=== PATIENT | female | born 1960 | race Caucasian/White ===

== ENCOUNTER 2020-03-01 14:17 | Observation (INO) | payer BC ==
[~2020-03-01] VITALS: Ht 165.1 cm; Wt 89.7 kg
[2020-03-01 14:51] LABS: BASO # 0.1 (0.0-0.2); BASO % 0.4 % (0.0-2.0); EOS # 0.2 (0.0-0.7); EOS % 1.3 % (0-4.0); GRAN # 8.3 (1.4-6.5); GRAN % 68.2 % (42.2-75.2); HEMATOCRIT 45.7 % (37.0-47.0); HEMOGLOBIN 15.5 g/dl (12.5-16.0); LYMPH # 2.8 (1.2-3.4); LYMPH % 22.9 % (20.0-51.0); MEAN CELL VOLUME 83 fl (80.0-100.0); MEAN CORPUSCULAR HEMOGLOBIN 28 pg (27.0-31.0); MEAN CORPUSCULAR HGB CONC 34 g/dl (33.0-37.0); MEAN PLATELET VOLUME 8.2 fl (7.4-10.4); MONO # 0.8 (0.1-0.6); MONO % 6.9 % (1.7-9.3); PLATELET COUNT 277 K/mm3 (130-400); RED BLOOD COUNT 5.48 M/mm3 (4.10-5.30); REDCELL DISTRIBUTION WIDTH-CV 14.4 % (11.5-14.5)
[2020-03-01 14:58] LABS: PROTHROMBIN TIME 11.5 SECONDS (9.7-12.8)
[2020-03-01 15:01] LABS: PARTIAL THROMBOPLASTIN TIME 52.7 SECONDS (26.0-37.0)
[2020-03-01 15:02] LABS: ALBUMIN 3.5 gm/dL (3.5-5.0); BILIRUBIN,TOTAL 0.4 mg/dL (0.0-1.0); CALCIUM 8.9 mg/dL (8.4-10.2); CREATININE, serum 0.62 (0.52-1.25); POTASSIUM 3.2 mmol/L (3.4-5.0); TOTAL PROTEIN 6.2 gm/dL (6.4-8.2)
[2020-03-01 15:13] LABS: TROPONIN-I 0.015 ng/mL (0.000-0.035)
[2020-03-01] MEDS ORDERED: AMBIEN 10MG10 MG PO (15:17)
[2020-03-01] MEDS ORDERED: PLAVIX 75MG TAB75 MG PO (15:17)
[2020-03-01] MEDS ORDERED: ASPIRIN 81M81 MG/TA2 PO (15:24)
[2020-03-01] MEDS ORDERED: PRINIVIL20 MG PO (15:25)
[2020-03-01] MEDS ORDERED: IMDUR 60MG60 MG/TAB PO (15:26)
[2020-03-01] MEDS ORDERED: PLETAL50 MG PO (15:27)
[2020-03-01] MEDS ORDERED: JARDIANCE25 (15:28)
[2020-03-01] MEDS ORDERED: PROZAC 20MG20 MG PO (15:28)
[2020-03-01] MEDS ORDERED: TOPROL XL 50MG50 MG PO (15:29)
[2020-03-01] MEDS ORDERED: GLUCOPHAGE500 MG/TAB PO (15:30)
[2020-03-01] MEDS ORDERED: REPATHA SU140 MG/1 M SQ (15:31)
[2020-03-01] MEDS ORDERED: TOUJEO300 U/ML SQ (15:42)
[2020-03-01 18:28] LABS: CHOLESTEROL RISK RATIO 1.8
[2020-03-01 18:32] VITALS: BP 176/88; PULSE 62; TEMP 97.6
[2020-03-01 19:30] VITALS: BP 145/65; PULSE 70; TEMP 97.6
[2020-03-01 20:09] VITALS: BP 154/59; PULSE 71; TEMP 97.6
[2020-03-01 23:53] VITALS: BP 162/86; PULSE 66; TEMP 98
[2020-03-02] VITALS (18 sets, daily range): BP systolic 139–189; BP diastolic 57–94; PULSE 61–71; TEMP 97.6–98.8
--- NOTE | 2020-03-02 00:49 | NUR ---
Patient pleasant, A/O x4. Patient denies chest pain, SOB, dyspnea, N/V, or headache. Patient independent in the room and denies any weakness or dizziness upon ambulation. Left forearm IV site has no s/s of complications. Scheduled meds given per APR. Call light within reach. Patient denies any needs at this time.
--- NOTE | 2020-03-02 06:13 | NUR ---
Patient sitting in the chair at 0600. Patient denies any chest pain or SOB. Patient independent in the room. Denies weakness or dizziness upon get up and ambulating in the room. Nitro patch removed at 0600. NPO status maintained from midnight. Informed patient regarding Echo procedure and patient verbalized understanding. Call light within reach. Patient denies any needs at this time.
[2020-03-02 07:15] LABS: ALBUMIN 3.4 gm/dL (3.5-5.0); BILIRUBIN,TOTAL 0.4 mg/dL (0.0-1.0); CALCIUM 8.6 mg/dL (8.4-10.2); CREATININE, serum 0.71 (0.52-1.25); POTASSIUM 3.6 mmol/L (3.4-5.0); TOTAL PROTEIN 5.9 gm/dL (6.4-8.2)
[2020-03-02 07:23] LABS: BASO # 0.1 (0.0-0.2); BASO % 0.7 % (0.0-2.0); EOS # 0.2 (0.0-0.7); EOS % 2.2 % (0-4.0); GRAN # 4.7 (1.4-6.5); GRAN % 51.1 % (42.2-75.2); HEMATOCRIT 44.6 % (37.0-47.0); HEMOGLOBIN 15.1 g/dl (12.5-16.0); LYMPH # 3.4 (1.2-3.4); LYMPH % 37.3 % (20.0-51.0); MEAN CELL VOLUME 83 fl (80.0-100.0); MEAN CORPUSCULAR HEMOGLOBIN 28 pg (27.0-31.0); MEAN CORPUSCULAR HGB CONC 34 g/dl (33.0-37.0); MEAN PLATELET VOLUME 8.6 fl (7.4-10.4); MONO # 0.8 (0.1-0.6); MONO % 8.3 % (1.7-9.3); PLATELET COUNT 281 K/mm3 (130-400); RED BLOOD COUNT 5.35 M/mm3 (4.10-5.30); REDCELL DISTRIBUTION WIDTH-CV 14.6 % (11.5-14.5)
[2020-03-02 07:26] LABS: TROPONIN-I 0.018 ng/mL (0.000-0.035)
--- NOTE | 2020-03-02 09:00 | NUR ---
New order received from Dr. Reno for left heart catheterization. reported that Dr. Mendoza might be able to perform the procedure around noon but to call him first as his clinic was very busy. Dr. Mendoza vehicle monitor technician today for the cardiac laborer car barn. Attempted to call MD on his cell phone with hospital phone and it went straight to voicemail at 0905. I then texted Dr. Mendoza to see what time he would like us to have his patient ready. I also called Huong the pediatric clinical nurse specialist for heart and vascular clinics and notified her that I was not able to reach Dr. Mendoza by cell phone or by text and Huong stated she would follow up with Dr. Mendoza to contact me back. I received a text message from Dr. Mendoza at 1120 regarding the procedure.
--- NOTE | 2020-03-02 09:01 | NUR ---
RAMON met with the patient to discuss discharge plan. The patient lives in [place] with her , Fredy (ph#[phone]). She reports independence with ADLs and does not have any DME. The patient's PCP is Dr. Vicky Nunez at the [facility] in [place] and she receives her medications from [facility]. She reports no difficulties obtaining her meds. The patient does not have a DPOA-HC, but she was interested in a form. RAMON provided. The patient plans to return home with her upon discharge. RAMON contacted and reviewed the d/c plan with the patient's , Fredy. Fredy had no concerns about the patient returning home upon discharge. No additional needs at this time.
--- NOTE | 2020-03-02 10:29 | NUR ---
Pt assessment completed, pt laying in bed, denies SOB, N/V/D, chest pain, vision changes. Pt states she has some numbness to toes but that has been baseline for last year. Pulses strong bilaterally, HRRR, LS cta. Pt has LFA INT IV that flushes well, no issues. Pt BP this morning 172/92 @0800, rechecked 189/73 @ 0930. Lisinopril and toprol administered per apr, will recheck BP. All other VSS. Pt denies any concerns. Pt on room air, breathing is even and unlabored. No further needs at this time, pt to have Heart Cath this afternoon.
--- NOTE | 2020-03-02 17:54 | NUR ---
Pt taken down for heart cath procedure at this time w/ VERO Daniel. BP and BS will be checked at procedure.
--- NOTE | 2020-03-02 18:04 | NUR ---
SEE MERGE DOCUMENTATION FOR MEDICATION ADMINISTRATION TIMES AND INTRA/POST PROCEDURE SEDATION ASSESSMENTS.
--- NOTE | 2020-03-02 19:01 | NUR ---
Pt post-stent deployment in collaborating supervising physician. Pt has been on ASA and Plavix emt intermediate. Pt received ASA 81mg and Plavix 75mg PO at 1400 today. This information relayed to Dr Mendoza. Per , no extra ASA or Plavix required. Angiomax gtt to be DC'd on departure to Medical Floor from Geothermal Powerplant Supervisor. Orders read back and verified with .
[2020-03-03] VITALS (7 sets, daily range): BP systolic 125–150; BP diastolic 53–72; PULSE 67–77; TEMP 97.8–98.2
--- NOTE | 2020-03-03 01:20 | NUR ---
Patient came back to the room from Heart laboratory sampler at 19:25 pm. Patient alert and oriented. Right femeral puncture site covered wit dry gauze and C/D/I. Puncture site skin soft and no hematoma. Peripheral pulses strong. Patient denies any numbness or tingling. No N/V, no c/o pain or discomfort. VS stable. Patient laying supine in bed. Offered dinner at this time. Call light within reach. Will continue to monitor.
--- NOTE | 2020-03-03 01:36 | NUR ---
Patient c/o lower back pain 09/20. PRN Morphine given per APR. K+ level 3.6. Replaced potassium per protocol. Right femeral puncture site remains C/D/I. Skin soft and no hematoma noted. No numbness or tingling noted. VS stable. Will continue to monitor.
--- NOTE | 2020-03-03 05:32 | NUR ---
Heart cath puncture site remains C/D/I throughout the night. Skin soft and no hematoma around puncture site. No numbness or tingling noted. VS WNL this morning. No acute distress noted.
[2020-03-03 07:24] LABS: BASO % 0.5 % (0.0-2.0); EOS # 0.1 (0.0-0.7); EOS % 0.9 % (0-4.0); GRAN # 4.5 (1.4-6.5); GRAN % 52.9 % (42.2-75.2); HEMATOCRIT 40.6 % (37.0-47.0); HEMOGLOBIN 13.7 g/dl (12.5-16.0); LYMPH # 3.1 (1.2-3.4); LYMPH % 36.7 % (20.0-51.0); MEAN CELL VOLUME 84 fl (80.0-100.0); MEAN CORPUSCULAR HEMOGLOBIN 28 pg (27.0-31.0); MEAN CORPUSCULAR HGB CONC 34 g/dl (33.0-37.0); MEAN PLATELET VOLUME 8.8 fl (7.4-10.4); MONO # 0.8 (0.1-0.6); MONO % 8.8 % (1.7-9.3); PLATELET COUNT 240 K/mm3 (130-400); RED BLOOD COUNT 4.85 M/mm3 (4.10-5.30)
[2020-03-03 08:07] LABS: CALCIUM 8.6 mg/dL (8.4-10.2); CREATININE, serum 0.84 (0.52-1.25); POTASSIUM 3.9 mmol/L (3.4-5.0)
--- NOTE | 2020-03-03 09:52 | NUR ---
Pt assessment completed and charted, medications administered per apr. Pt sitting on bench at bedside, denies any pain, dizziness, n/v/d, chest pain, SOB. Pt on room air, breathing is even and unlabored. Pt has LFA INT IV that flushes well, no issues. Pt has Rt groin site from heart cath on 03/02/20, gauze and tegaderm, CDI, soft to touch, no hematoma noted. LS cta, HRRR. BP and BS improved from yesterday. pt states she had back pain yesterday that has since improved. NO further concerns expressed at this time. Call light within reach.
[2020-03-03] MEDS ORDERED: IMDUR 60MG60 MG/TAB PO (10:42)
[2020-03-03] MEDS ORDERED: NITRO-DUR0.4 MG/PAT TD (10:43)
[2020-03-03] MEDS ORDERED: COREG12.5 MG PO (10:44)
[2020-03-03] MEDS ORDERED: NITROSTAT0.4 MG/TAB SL (10:45)
--- NOTE | 2020-03-03 11:18 | NUR ---
The clinical team notified RAMON that the patient is interested in getting a provider is [place]. RAMON met with the patient and provided her with a list of the different providers in [place]. The patient states that she will look over the patient.
--- NOTE | 2020-03-03 12:31 | NUR ---
Pt discharge instructions discussed and reviewed w/ patient who verbalized understanding, all questions answered. No further needs expressed. LFA INT IV dc'd w/ cath tip intact and no issues noted. Pt escorted out via WC w/ staff, arrive in private car to take pt home.
--- NOTE | 2020-03-03 12:47 | NUR ---
First visit from the arch support technician. No needs right now.
== END 2020-03-03 12:32 | disposition home or self-care (01) ==
LOC: COL.ER 14:17 → MEDICAL 15:46
PROVIDERS: Family Medicine; Internal Medicine Interventional Cardiology; Student in an Organized Health Care Education/Training Program; ADMIT Student in an Organized Health Care Education/Training Program
DX: I25.110 Atherosclerotic heart disease of native coronary artery with unstable angina pectoris (principal); I11.0 Hypertensive heart disease with heart failure; I50.32 Chronic diastolic (congestive) heart failure; I34.0 Nonrheumatic mitral (valve) insufficiency; E11.9 Type 2 diabetes mellitus without complications; G50.0 Trigeminal neuralgia; E87.6 Hypokalemia; Z20.822 Contact with and (suspected) exposure to COVID-19; G47.00 Insomnia, unspecified; I73.9 Peripheral vascular disease, unspecified; F32.9 Major depressive disorder, single episode, unspecified; Z95.1 Presence of aortocoronary bypass graft; Z95.828 Presence of other vascular implants and grafts; Z79.02 Long term (current) use of antithrombotics/antiplatelets; Z79.82 Long term (current) use of aspirin; Z23 Encounter for immunization; Z79.899 Other long term (current) drug therapy; Z79.4 Long term (current) use of insulin
CPT/HCPCS: C9600; G0008; G0378; J0360; J0583; J1644; J1650; J2250; J2270; J3010; Q9967

== ENCOUNTER → 2020-08-02 | Outpatient (CLI) | payer BC ==
[~2020-08-02] MED LIST: AMBIEN 10MG10 MG PO; ASPIRIN 81M81 MG/TA2 PO; COREG12.5 MG PO; GLUCOPHAGE500 MG/TAB PO; IMDUR 60MG60 MG/TAB PO; JARDIANCE25; NITRO-DUR0.4 MG/PAT TD; NITROSTAT0.4 MG/TAB SL; PLAVIX 75MG TAB75 MG PO; PLETAL50 MG PO; PRINIVIL20 MG PO; PROZAC 20MG20 MG PO; REPATHA SU140 MG/1 M SQ; TOPROL XL 50MG50 MG PO; TOUJEO300 U/ML SQ
== END ==
LOC: ZCOL.LAB 08:58
DX: Z01.818 Encounter for other preprocedural examination (principal); Z20.822 Contact with and (suspected) exposure to COVID-19

== ENCOUNTER 2021-02-17 18:27 | Inpatient (IN) | payer BC ==
[~2021-02-17] VITALS: Ht 165.1 cm; Wt 83.2 kg
[2021-02-17 19:35] LABS: BASO % 0.3 % (0.0-2.0); GRAN # 4.8 K/mm3 (1.4-6.5); GRAN % 70.2 % (42.2-75.2); HEMATOCRIT 39.9 % (37.0-47.0); HEMOGLOBIN 13.5 g/dl (12.5-16.0); LYMPH # 1.6 K/mm3 (1.2-3.4); LYMPH % 23.7 % (20.0-51.0); MEAN CELL VOLUME 81 fl (80.0-100.0); MEAN CORPUSCULAR HEMOGLOBIN 27 pg (27-31); MEAN CORPUSCULAR HGB CONC 34 g/dl (33.0-37.0); MEAN PLATELET VOLUME 9.1 fl (7.4-10.4); MONO # 0.4 K/mm3 (0.1-0.6); MONO % 5.4 % (1.7-9.3); PLATELET COUNT 189 K/mm3 (130-400); RED BLOOD COUNT 4.92 M/mm3 (4.10-5.30); REDCELL DISTRIBUTION WIDTH-CV 14.4 % (11.5-14.5)
[2021-02-17 19:50] LABS: ALBUMIN 2.6 gm/dL (3.4-4.8); BILIRUBIN,TOTAL 0.5 mg/dL (0.2-1.2); CALCIUM 7.9 mg/dL (8.4-10.2); CREATININE, serum 0.66 mg/dL (0.57-1.11); POTASSIUM 3.1 mmol/L (3.5-4.5); TOTAL PROTEIN 6.1 gm/dL (6.2-8.1)
[2021-02-17 19:57] LABS: TROPONIN-I 0.138 ng/mL (0.00-0.033)
[2021-02-17] MEDS ORDERED: IMDUR 60MG60 MG/TAB PO (21:19)
[2021-02-17] MEDS ORDERED: NORVASC 10MG10 MG PO (21:20)
[2021-02-17] MEDS ORDERED: LIDODERM 5% PATC1 EA TP (21:22)
[2021-02-17] MEDS ORDERED: OZEMPIC0.25 MG/0. SQ (21:24)
[2021-02-17] MEDS ORDERED: REPATHA SU140 MG/1 M SQ (21:24)
[2021-02-17] MEDS ORDERED: ZOLOFT 25MG25 MG PO (21:25)
--- NOTE | 2021-02-17 22:50 | NUR ---
PT admitted to room 352 from ED per WC on 6L O2 per NC, increased to 10L per RT after transferred to bed. pt alert and oriented, INT to LFA patent/secure. BGM ordered ACHS, up to restroom with hand held assistance. pt reports not eating dinner, sandwich box provided, orders reviewed and implemented.
[2021-02-17 22:58] VITALS: BP 194/89; PULSE 89; TEMP 98.2
[2021-02-18 03:59] VITALS: BP 167/66; PULSE 70; TEMP 98.4
[2021-02-18 05:45] LABS: GRAN # 4.2 K/mm3 (1.4-6.5); GRAN % 77.9 % (42.2-75.2); HEMATOCRIT 38.1 % (37.0-47.0); LYMPH # 0.9 K/mm3 (1.2-3.4); LYMPH % 17.2 % (20.0-51.0); MEAN CELL VOLUME 82 fl (80.0-100.0); MEAN CORPUSCULAR HEMOGLOBIN 28 pg (27-31); MEAN CORPUSCULAR HGB CONC 34 g/dl (33.0-37.0); MEAN PLATELET VOLUME 9.4 fl (7.4-10.4); MONO # 0.2 K/mm3 (0.1-0.6); MONO % 4.5 % (1.7-9.3); PLATELET COUNT 167 K/mm3 (130-400); RED BLOOD COUNT 4.65 M/mm3 (4.10-5.30); REDCELL DISTRIBUTION WIDTH-CV 14.2 % (11.5-14.5)
[2021-02-18 05:56] LABS: CALCIUM 7.9 mg/dL (8.4-10.2); CREATININE, serum 0.66 mg/dL (0.57-1.11); POTASSIUM 3.4 mmol/L (3.5-4.5)
[2021-02-18 06:09] LABS: TROPONIN-I 6 HR POST INITIAL 0.117 ng/mL (0.00-0.033)
--- NOTE | 2021-02-18 06:27 | NUR ---
pt remains on 10L O2 per NC sats low 90s, up to restroom with handheld assistance d/t weakness. bgm 154 this am.
[2021-02-18 07:38] VITALS: BP 145/56; PULSE 64; TEMP 98.5
--- NOTE | 2021-02-18 11:50 | NUR ---
Scheduled medications given. Shift assessment performed. Patient currently requiring 12L of O2 via nasal cannula. Denies any pain, discomfort, SOA, or further needs at this time. VSS. Patient A&O. Call light in reach. Fall percautions in place.
[2021-02-18 11:52] VITALS: BP 135/52; PULSE 64; TEMP 97.6
--- NOTE | 2021-02-18 13:20 | NUR ---
Household Refrigeration Mechanic called patient and prayed with them over the phone.
[2021-02-18 15:22] VITALS: BP 125/52; PULSE 66; TEMP 97.7
--- NOTE | 2021-02-18 19:16 | NUR ---
Patient has had an ok day. Denies any pain, discomfort, SOA, or further needs at this time. VSS. Patient A&O. Currenlty requiring 12L of O2 via nasal cannula. Call light in reach.
[2021-02-18 20:06] VITALS: BP 129/59; PULSE 89; TEMP 97.9
[2021-02-18 23:20] VITALS: BP 130/60; PULSE 69; TEMP 98
[2021-02-19] VITALS (210 sets, daily range): BP systolic 130–183; BP diastolic 54–74; PULSE 52–85; TEMP 98.2–99.5; O2SAT 95–100
--- NOTE | 2021-02-19 04:20 | NUR ---
PT'S FASTING BGM 36, ORANGE JUICE AND CRACKERS GIVEN, RECHECK 71, LORI FINK NOTIFIED, NO NEW ORDERS.
--- NOTE | 2021-02-19 08:09 | NUR ---
PT 84% ON 12 LPM HFNC INCREASED TO 15 LPM 84% PLACED ON AIRVO 60L 86% SPO2 88% RN NOTIFIED
[2021-02-19 08:41] LABS: ARTERIAL BLD GAS TCO2 CT 25.8; ARTERIAL BLOOD GAS BASE EXCESS 2.9 (-2-2); ARTERIAL BLOOD GAS HCO3 24.9 meq/L (22-26); ARTERIAL BLOOD GAS PCO2 30.8 mmHg (35-45); ARTERIAL BLOOD GAS pH 7.53 (7.35-7.45)
[2021-02-19 08:42] LABS: ARTERIAL BLOOD GAS PO2 46.5 mmHg (80-100)
[2021-02-19 09:52] LABS: BASO % 0.2 % (0.0-2.0); GRAN # 9.6 K/mm3 (1.4-6.5); GRAN % 81.8 % (42.2-75.2); HEMATOCRIT 42.3 % (37.0-47.0); HEMOGLOBIN 14.1 g/dl (12.5-16.0); LYMPH # 1.5 K/mm3 (1.2-3.4); MEAN CELL VOLUME 82 fl (80.0-100.0); MEAN CORPUSCULAR HEMOGLOBIN 27 pg (27-31); MEAN CORPUSCULAR HGB CONC 33 g/dl (33.0-37.0); MEAN PLATELET VOLUME 9.2 fl (7.4-10.4); MONO # 0.5 K/mm3 (0.1-0.6); MONO % 4.6 % (1.7-9.3); PLATELET COUNT 266 K/mm3 (130-400); RED BLOOD COUNT 5.14 M/mm3 (4.10-5.30); REDCELL DISTRIBUTION WIDTH-CV 14.2 % (11.5-14.5)
[2021-02-19 10:09] LABS: CALCIUM 8.1 mg/dL (8.4-10.2); CREATININE, serum 0.57 mg/dL (0.57-1.11); POTASSIUM 3.2 mmol/L (3.5-4.5)
--- NOTE | 2021-02-19 10:29 | NUR ---
Scheduled medications given. Shift assessment performed. Patient A&O. RT informed this RN that patient's O2 requirements have increased substantially. Patient is currently requiring Bipap. Setting are 18/10 at 100%. Blood glucose checked and it read 47. Hypoglycemic protocol in place. Poell aware. Call light in reach. Fall percaution in place.
--- NOTE | 2021-02-19 11:05 | NUR ---
Sw tried to via call pt due to covid + to complete intake and was not successful at 11:05 am.
--- NOTE | 2021-02-19 12:30 | NUR ---
Pt arrived from Medical floor, prior to arrival CT chest performed. Pt awake, alert, oriented, tolerating BiPAP well with no distress. Pt states she feels better wearing BiPAP with the amount of air it provides with each breath. Pt able to speak in complete sentences. BiPAP education provided - pt has no difficulty comprehending. Extensive talk/education provided regarding current BiPAP maximum settings - pt informed that intubation with mechanical ventilation would be the next step if BiPAP is either not tolerated or does not provide enough ventilatory support to maintain adequate oxygenation. Pt states understanding and wishes to "do what ever it takes". Pt having urinary retention and states she is unable to void using a bed reyes Purvis MD notified - order for Arnold provided. Tepid water requested and provided with assistance - no difficulty swallowing Denies any further needs - call light in reach
--- NOTE | 2021-02-19 13:06 | NUR ---
Patient transferred to ICU bed 2. Report given to VREO Meza. CT scan completed. BS stable.
[2021-02-19 14:05] LABS: ARTERIAL BLD GAS O2 SATURATION 97.1 % (92-100); ARTERIAL BLD GAS TCO2 CT 23.8; ARTERIAL BLOOD GAS BASE EXCESS 0.1 (-2-2); ARTERIAL BLOOD GAS HCO3 22.8 meq/L (22-26); ARTERIAL BLOOD GAS PCO2 31.3 mmHg (35-45); ARTERIAL BLOOD GAS PO2 90.2 mmHg (80-100); ARTERIAL BLOOD GAS pH 7.48 (7.35-7.45)
--- NOTE | 2021-02-19 17:41 | NUR ---
Pt continues to tolerate BiPAP well. Pt watching television and using cell phone.
[2021-02-20] VITALS: BP 131/65; PULSE 57; TEMP 99.1
[2021-02-20 04:00] VITALS: BP 148/79; PULSE 56; TEMP 98.7
[2021-02-20 04:54] LABS: ARTERIAL BLD GAS O2 SATURATION 97.3 % (92-100); ARTERIAL BLD GAS TCO2 CT 23.3; ARTERIAL BLOOD GAS BASE EXCESS -1.5 (-2-2); ARTERIAL BLOOD GAS HCO3 22.3 meq/L (22-26); ARTERIAL BLOOD GAS PCO2 34.4 mmHg (35-45); ARTERIAL BLOOD GAS PO2 100.7 mmHg (80-100); ARTERIAL BLOOD GAS pH 7.43 (7.35-7.45)
[2021-02-20 05:26] LABS: BASO % 0.2 % (0.0-2.0); GRAN # 3.7 K/mm3 (1.4-6.5); GRAN % 65.9 % (42.2-75.2); LYMPH # 1.5 K/mm3 (1.2-3.4); LYMPH % 25.6 % (20.0-51.0); MEAN CELL VOLUME 82 fl (80.0-100.0); MEAN CORPUSCULAR HGB CONC 34 g/dl (33.0-37.0); MONO # 0.4 K/mm3 (0.1-0.6); MONO % 7.4 % (1.7-9.3); PLATELET COUNT 231 K/mm3 (130-400); RED BLOOD COUNT 4.18 M/mm3 (4.10-5.30); REDCELL DISTRIBUTION WIDTH-CV 14.5 % (11.5-14.5)
[2021-02-20 05:35] LABS: HEMATOCRIT 34.3 % (37.0-47.0); HEMOGLOBIN 11.6 g/dl (12.5-16.0); MEAN CORPUSCULAR HEMOGLOBIN 28 pg (27-31)
[2021-02-20 05:49] LABS: CALCIUM 7.8 mg/dL (8.4-10.2); CREATININE, serum 0.68 mg/dL (0.57-1.11); POTASSIUM 3.7 mmol/L (3.5-4.5)
--- NOTE | 2021-02-20 07:00 | NUR ---
Assumed PT. All lines,BIPAP setting check. VSS.
[2021-02-20 08:00] VITALS: BP 147/76; PULSE 50; TEMP 98.3
--- NOTE | 2021-02-20 10:19 | NUR ---
Electronic Repair Troubleshooter contacted patient's , Fredy to complete initial intake as patient is in COVID isolation and on bipap. Patient lives with Fredy in [facility] and Fredy advised he cannot remember who patient's primary care physician is, but he thinks she sees someone in [place]. Patient obtains medications from [facility] in [place] and also recently started using a walker. Patient is normally independent with ADLS and Fredy advised the plan will be to return home if able. Patient is to Fredy and also has two adult sons, Darron ([place]) and Gordo ([facility]). Fredy advised patient also has two step daughters. Fredy does not believe patient has any Advance Directives. SW will continue to monitor for discharge needs.
--- NOTE | 2021-02-20 10:35 | NUR ---
PT placed on AIRVO 60L 90% . Will closely monitor for desaturation. .
[2021-02-20 12:00] VITALS: BP 147/66; PULSE 63; TEMP 98.8
--- NOTE | 2021-02-20 13:00 | NUR ---
PT continues to tolerate airvo well. Ate some lunch without issue.
[2021-02-20 16:00] VITALS: BP 149/71; PULSE 68; TEMP 97.9
[2021-02-20 20:00] VITALS: BP 145/66; PULSE 55; TEMP 98
[2021-02-21] VITALS (560 sets, daily range): BP systolic 150–174; BP diastolic 68–77; PULSE 52–67; TEMP 98–98.3; O2SAT 73–100
[2021-02-21 04:17] LABS: ARTERIAL BLD GAS O2 SATURATION 98.7 % (92-100); ARTERIAL BLD GAS TCO2 CT 23.2; ARTERIAL BLOOD GAS BASE EXCESS -1.9 (-2-2); ARTERIAL BLOOD GAS HCO3 22.1 meq/L (22-26); ARTERIAL BLOOD GAS PCO2 35.4 mmHg (35-45); ARTERIAL BLOOD GAS pH 7.41 (7.35-7.45)
[2021-02-21 04:22] LABS: ARTERIAL BLOOD GAS PO2 142.9 mmHg (80-100)
[2021-02-21 05:38] LABS: BASO % 0.2 % (0.0-2.0); GRAN # 3.8 K/mm3 (1.4-6.5); GRAN % 65.2 % (42.2-75.2); HEMOGLOBIN 11.5 g/dl (12.5-16.0); LYMPH # 1.5 K/mm3 (1.2-3.4); LYMPH % 25.8 % (20.0-51.0); MEAN CELL VOLUME 83 fl (80.0-100.0); MEAN CORPUSCULAR HEMOGLOBIN 28 pg (27-31); MEAN CORPUSCULAR HGB CONC 33 g/dl (33.0-37.0); MEAN PLATELET VOLUME 8.9 fl (7.4-10.4); MONO # 0.5 K/mm3 (0.1-0.6); MONO % 7.9 % (1.7-9.3); PLATELET COUNT 259 K/mm3 (130-400); RED BLOOD COUNT 4.17 M/mm3 (4.10-5.30); REDCELL DISTRIBUTION WIDTH-CV 14.4 % (11.5-14.5)
[2021-02-21 05:42] LABS: HEMATOCRIT 34.5 % (37.0-47.0)
[2021-02-21 05:48] LABS: CALCIUM 7.9 mg/dL (8.4-10.2); CREATININE, serum 0.71 mg/dL (0.57-1.11); POTASSIUM 3.9 mmol/L (3.5-4.5)
--- NOTE | 2021-02-21 22:03 | NUR ---
PT PLACED ON BIPAP AT THIS TIME, READY FOR SLEEP. WILL CONTINUE TO MONITOR.
[2021-02-22] VITALS (54 sets, daily range): BP systolic 156–171; BP diastolic 52–72; PULSE 55–63; TEMP 97.6–98.5; O2SAT 93–100
--- NOTE | 2021-02-22 01:41 | NUR ---
REPORT CALLED TO MEDICAL FLOOR FOR PT TRANSFER TO ROOM 309. WILL TRANSPORT WITH BIPAP AND TELEMTRY BOX.
--- NOTE | 2021-02-22 02:30 | NUR ---
PT TRANSPORTED TO MEDICAL FLOOR, ROOM 309 WITH RT ASSISTANCE WITH BIPAP. MET TECH IN ROOM, RN AWARE. RELINQUISHED CARE AT THIS TIME.
--- NOTE | 2021-02-22 03:58 | NUR ---
PT ARRIVES TO MEDICAL FLOOR AT APPROXIMATELY 0215 VIA BED BY ICU STAFF AND RT, PT ON BIPAP / 60% PERCENT FI02 SATURATING 100 PERCENT. ASSESMENT COMPLETE. MED REC COMPLETE. PICC IN WILFRED MEASUREMENTS WNL, WALTER C&D, ORDERS RECEIVED. POC DISCUSSED. PT VERBALIZES UNDERSTANDING. PT ORIENTED TO MEDICAL FLOOR AND HOSPITAL POLICY. ALL QUESTIONS/CONCERNS ANWERED. PT VERY PLEASANT AND COOPERATIVE AND EXPRESSES NO ADDITIONAL NEEDS AT THIS TIME. CALL LIGHT WITHIN REACH.
--- NOTE | 2021-02-22 05:47 | NUR ---
NO CLINICAL CHANGES OVER NIGHT. INSULIN ADMINSITERED ORDERED. SYSTOLIC ELEVATED. BIPAP REMAINS ON WITH AFOREMENTIONED SETTINGS, 02 WEANING GOALS DISCUSSED WITH PT. PT VERBALIZES UNDERSANDING. ALL NEEDS MET THIS SHIFT. CALL LIGHT WITHIN REACH.
[2021-02-22 09:44] LABS: BASO % 0.1 % (0.0-2.0); EOS % 0.5 % (0.0-4.0); GRAN # 4.8 K/mm3 (1.4-6.5); GRAN % 62.1 % (42.2-75.2); HEMATOCRIT 39.9 % (37.0-47.0); HEMOGLOBIN 13.1 g/dl (12.5-16.0); LYMPH # 2.3 K/mm3 (1.2-3.4); LYMPH % 29.7 % (20.0-51.0); MEAN CELL VOLUME 83 fl (80.0-100.0); MEAN CORPUSCULAR HEMOGLOBIN 27 pg (27-31); MEAN CORPUSCULAR HGB CONC 33 g/dl (33.0-37.0); MEAN PLATELET VOLUME 8.6 fl (7.4-10.4); MONO # 0.5 K/mm3 (0.1-0.6); MONO % 6.6 % (1.7-9.3); PLATELET COUNT 341 K/mm3 (130-400); RED BLOOD COUNT 4.79 M/mm3 (4.10-5.30)
[2021-02-22 10:19] LABS: CALCIUM 8.1 mg/dL (8.4-10.2); CREATININE, serum 0.65 mg/dL (0.57-1.11); POTASSIUM 3.8 mmol/L (3.5-4.5)
--- NOTE | 2021-02-22 11:30 | NUR ---
eport received from VERO Meza. Pt in bed resting, removed awan catheter per orders, pt tolerated well, sitting at side of bed eating lunch, doing well, denies pain or other needs, will continue to monitor.
--- NOTE | 2021-02-22 17:57 | NUR ---
Pt doing well, up sitting at bedside with AIRVO at 45L/60% and tolerating well. Arnold out and pt able to void, denies needs, will give report to nightshift nurse who will resume care.
[2021-02-23 04:32] VITALS: BP 169/73; PULSE 61; TEMP 97.7
[2021-02-23 05:15] LABS: ARTERIAL BLD GAS O2 SATURATION 94.1 % (92-100); ARTERIAL BLD GAS TCO2 CT 21.8; ARTERIAL BLOOD GAS BASE EXCESS -1.9 (-2-2); ARTERIAL BLOOD GAS HCO3 20.9 meq/L (22-26); ARTERIAL BLOOD GAS PCO2 30.2 mmHg (35-45); ARTERIAL BLOOD GAS pH 7.46 (7.35-7.45)
--- NOTE | 2021-02-23 06:51 | NUR ---
PT 02 NEEDS UNCHANGED. PT TOLERATING 02 WEAN, PT PLEASANT, COOPERATIVE AND COMPLIANT WITH RECS. THIS NURSE WILL CONTACT SON TO UPDATE.
[2021-02-23 08:17] VITALS: BP 167/51; PULSE 58; TEMP 97.5
[2021-02-23 10:03] LABS: BASO % 0.3 % (0.0-2.0); EOS # 0.1 K/mm3 (0.0-0.7); GRAN # 5.5 K/mm3 (1.4-6.5); HEMATOCRIT 41.6 % (37.0-47.0); HEMOGLOBIN 13.8 g/dl (12.5-16.0); LYMPH # 2.8 K/mm3 (1.2-3.4); LYMPH % 30.9 % (20.0-51.0); MEAN CELL VOLUME 82 fl (80.0-100.0); MEAN CORPUSCULAR HEMOGLOBIN 27 pg (27-31); MEAN CORPUSCULAR HGB CONC 33 g/dl (33.0-37.0); MEAN PLATELET VOLUME 8.7 fl (7.4-10.4); MONO # 0.6 K/mm3 (0.1-0.6); MONO % 6.5 % (1.7-9.3); PLATELET COUNT 338 K/mm3 (130-400); RED BLOOD COUNT 5.05 M/mm3 (4.10-5.30); REDCELL DISTRIBUTION WIDTH-CV 13.9 % (11.5-14.5)
[2021-02-23 10:23] LABS: CALCIUM 8.4 mg/dL (8.4-10.2); CREATININE, serum 0.68 mg/dL (0.57-1.11); POTASSIUM 4.3 mmol/L (3.5-4.5)
[2021-02-23 12:15] VITALS: BP 125/54; PULSE 59; TEMP 97.4
--- NOTE | 2021-02-23 12:51 | NUR ---
The patient is down to 6 liters of oxygen. SW to continue to monitor.
[2021-02-23 16:59] VITALS: BP 131/53; PULSE 59; TEMP 97.6
[2021-02-23 19:46] VITALS: BP 133/50; PULSE 56; TEMP 97.7
[2021-02-23 20:56] LABS: CREATININE, serum 0.79 mg/dL (0.57-1.11); POTASSIUM 4.3 mmol/L (3.5-4.5)
--- NOTE | 2021-02-23 23:59 | NUR ---
PT IS PLEASANT, ALERT AND ORIENTATED. BGS WAS NOTED AT 430 VIA ACCUCHECK. BMP ORDERED, BGS CAME BACK AT 511. NINA FLORESISON ORDERED 14 UNITS NOVOLOG PER SLIDING SCHEDULE, WHEN BMP CAME BACK ORDERED 10 UNITS IV. PT DENIES ANY PAIN OR SIGNS OF HYPERGLYCEMIA. PT TOOK ALL MEDICATIONS DENIES PAIN. NS RUNNING AT 100 ML/HR. AT 2315, BGS RECHECKED, WAS AT 208. BOSTON NOTIFIED. WILL RECHECK BGS AT 0115.
[2021-02-24] VITALS (7 sets, daily range): BP systolic 121–179; BP diastolic 52–65; PULSE 53–64; TEMP 97.4–97.9
--- NOTE | 2021-02-24 05:51 | NUR ---
PT HAD AN RELATIVE UNEVENTFUL NIGHT. PT HAD HIGH BLOOD GLUCOSE EARLY IN EVENING, RETURNED TO 170 BY 0100. PT HAD NS RUNNING AT 100 ML/HR. D/C AROUND 0400 DUE TO HIGHER BP, 0900 DOSE OF APRESOLINE GIVEN AT THAT TIME PER DISPATCHER CLERK BOSTON ORDERS. ALL MEDICATIONS GIVEN, CALL LIGHT IN REACH.
[2021-02-24 06:09] LABS: HEMATOCRIT 38.2 % (37.0-47.0); HEMOGLOBIN 12.6 g/dl (12.5-16.0); MEAN CELL VOLUME 83 fl (80.0-100.0); MEAN CORPUSCULAR HEMOGLOBIN 27 pg (27-31); MEAN CORPUSCULAR HGB CONC 33 g/dl (33.0-37.0); MEAN PLATELET VOLUME 8.9 fl (7.4-10.4); PLATELET COUNT 344 K/mm3 (130-400); RED BLOOD COUNT 4.63 M/mm3 (4.10-5.30); REDCELL DISTRIBUTION WIDTH-CV 13.9 % (11.5-14.5)
[2021-02-24 06:20] LABS: CALCIUM 7.9 mg/dL (8.4-10.2); CREATININE, serum 0.58 mg/dL (0.57-1.11); POTASSIUM 3.7 mmol/L (3.5-4.5)
[2021-02-24 07:37] LABS: BAND 2 % (0-10); EOSINOPHIL 2 % (0-4); LYMPHOCYTE 16 % (20.0-51.0); NEUTROPHILS 72 % (42.0-75.2)
[2021-02-24 07:38] LABS: OVALOCYTES 1+; PLATELET ESTIMATE NORMAL (NORMAL)
[2021-02-24 07:39] LABS: MICROCYTOSIS 1+
--- NOTE | 2021-02-24 10:15 | NUR ---
PT ASSESSED. NO COMPALINTS OF PAIN OR DYSPNEA. NO SIGNS OR SYMPTOMS OF DISTRESS. CALL LIGHT WITHIN REACH
--- NOTE | 2021-02-24 16:08 | NUR ---
SW contacted the patient to follow up and review discharge plan. The patient confirms that she plans on returning home with her upon discharge. She is down to 5 liters of oxygen. The patient reports that if she needs oxygen, she would be interested in seeing if [facility] has oxygen. If not, she is open to getting it at a different [employer] company. SW to continue to follow. *Discharge plan: home with *
--- NOTE | 2021-02-24 21:59 | NUR ---
Patient A/Ox4. Patient denies any pain or discomfort. Patient currently on oxygen 4L via NC. Breathing even and unlabored. Patient denies SOB or dyspnea. Patient reports feeling much better today. All scheduled meds given per MAR. Call light in reach. Will continue to monitor.
[2021-02-25 03:47] VITALS: BP 184/55; PULSE 61; TEMP 98.4
--- NOTE | 2021-02-25 05:37 | NUR ---
Patient remains on 4L oxygen over the night. No acute respiratory distress noted throughout the night. BP 184/55 this morning. Called ALEX Kerr and updated. 9 am dose of Hydralazine given at 5 am per ALEX Kerr verbal order. Call light in reach. Will continue to monitor.
[2021-02-25 07:38] LABS: HEMOGLOBIN 12.7 g/dl (12.5-16.0); MEAN CELL VOLUME 83 fl (80.0-100.0); MEAN CORPUSCULAR HEMOGLOBIN 28 pg (27-31); MEAN CORPUSCULAR HGB CONC 33 g/dl (33.0-37.0); MEAN PLATELET VOLUME 8.9 fl (7.4-10.4); PLATELET COUNT 344 K/mm3 (130-400); RED BLOOD COUNT 4.58 M/mm3 (4.10-5.30); REDCELL DISTRIBUTION WIDTH-CV 14.2 % (11.5-14.5)
[2021-02-25 07:49] LABS: CALCIUM 8.1 mg/dL (8.4-10.2); CREATININE, serum 0.62 mg/dL (0.57-1.11); POTASSIUM 3.9 mmol/L (3.5-4.5)
[2021-02-25 08:34] VITALS: BP 164/56; PULSE 53; TEMP 97.8
--- NOTE | 2021-02-25 09:20 | NUR ---
PT ASSESSED. NO COMPLAINTS OF PAIN OR DYSPNEA. NO SIGNS OR SYMTPOMS OF DISTRESS. CALL LIGHT WITHIN REACH. MEDICATIONS GIVEN PER APR.
[2021-02-25 10:19] LABS: EOSINOPHIL 1 % (0-4); LYMPHOCYTE 24 % (20.0-51.0); NEUTROPHILS 68 % (42.0-75.2)
[2021-02-25 10:20] LABS: PLATELET ESTIMATE NORMAL (NORMAL)
[2021-02-25] MEDS ORDERED: APRESOLINE 10MG10 MG PO (10:27)
[2021-02-25] MEDS ORDERED: DECADRON6 MG PO (10:29)
--- NOTE | 2021-02-25 11:02 | NUR ---
Chassis Mechanic notified by Hospitalist that patient will discharge today and requires 4 liters of oxygen. SW contacted patient by phone and she was agreeable to have home oxygen set up through [employer]. RAMON collaborated with Lorenzo at [facility] who will deliver oxygen supplies up to patient's hospital room. Lorenzo advised patient will have an out of pocket of approximately $400 per month based on patient's insurance. RAMON faxed referral and oxygen orders. RAMON followed up with patient who is agreeable to out of pocket griffith and reports she can provide payment today when supplies are delivered. Patient states she has transportation home today. Discharge Plan: Home with home oxygen
[2021-02-25 11:59] LABS: PATHOLOGY DIFF REVIEW OK
[2021-02-25 12:14] VITALS: BP 124/54; PULSE 57; TEMP 97.7
--- NOTE | 2021-02-25 15:17 | NUR ---
PT DISCHARGE INSTRUCTIONS COMPLETE. HOME OXYGEN DELIVERED. PICC REMOVED BY COMMODITIES TRADER. NO OTHER COMPLAINTS OR CONCERNS AT THIS TIME.
--- NOTE | 2021-02-25 15:40 | NUR ---
PT COMPLETED FLAT TIME AND IS ESCORTED OUT AT THIS TIME.
== END 2021-02-25 15:41 | disposition home or self-care (01) | DRG 177 ==
LOC: COL.ER 18:27 → ICU 20:59 → COL.ER 20:59 → MEDICAL 20:59 → ICU 02-19 14:35 → MEDICAL 02-22 01:58
PROVIDERS: Internal Medicine; Internal Medicine Pulmonary Disease; Nurse Practitioner Family; Student in an Organized Health Care Education/Training Program; ADMIT Student in an Organized Health Care Education/Training Program
PROC: XW033E5 Introduction of Remdesivir Anti-infective into Peripheral Vein, Percutaneous Approach, New Technology Group 5 (ICD-10-PCS; principal; 2021-02-17)
PROC: 5A0935A Assistance with Respiratory Ventilation, Less than 24 Consecutive Hours, High Flow/Velocity Cannula (ICD-10-PCS; 2021-02-18)
PROC: 5A09457 Assistance with Respiratory Ventilation, 24-96 Consecutive Hours, Continuous Positive Airway Pressure (ICD-10-PCS; 2021-02-19)
PROC: 02HV33Z Insertion of Infusion Device into Superior Vena Cava, Percutaneous Approach (ICD-10-PCS; 2021-02-20)
DX: U07.1 COVID-19 (principal); J12.82 Pneumonia due to coronavirus disease 2019; J96.01 Acute respiratory failure with hypoxia; I21.A1 Myocardial infarction type 2; I25.10 Atherosclerotic heart disease of native coronary artery without angina pectoris; I10 Essential (primary) hypertension; F32.A Depression, unspecified; E11.51 Type 2 diabetes mellitus with diabetic peripheral angiopathy without gangrene; G47.00 Insomnia, unspecified; E87.6 Hypokalemia; E11.65 Type 2 diabetes mellitus with hyperglycemia; E11.649 Type 2 diabetes mellitus with hypoglycemia without coma; Z95.5 Presence of coronary angioplasty implant and graft; Z95.1 Presence of aortocoronary bypass graft; Z79.82 Long term (current) use of aspirin; Z79.4 Long term (current) use of insulin; Z23 Encounter for immunization
CPT/HCPCS: 99223-AI; 99232-AI; 99233-AI; 99239; C1751; J0248; J0696; J1100; J1650; J1815; J3480; J7030; J7050; Q0249; Q9967